=== PATIENT | male | born 1995 | race Two or more races ===

== ENCOUNTER 2024-01-14 18:53 | Emergency (ER) | payer MEDICAID, OTHER ==
[~2024-01-14] VITALS: Ht 182.9 cm; Wt 127.9 kg
[2024-01-14 19:27] VITALS: BP 122/75; PULSE 94; RESP 16; TEMP 99.2
[2024-01-14] MEDS ORDERED: IBUP-1456 PO (21:02)
[2024-01-14 21:06] VITALS: O2SAT 96
== END 2024-01-14 21:27 | disposition home or self-care (01) ==
LOC: ER 18:53
DX: S83.8X1A Sprain of other specified parts of right knee, initial encounter (principal); Z79.899 Other long term (current) drug therapy; X58.XXXA Exposure to other specified factors, initial encounter; Y93.89 Activity, other specified; Y92.89 Other specified places as the place of occurrence of the external cause; Y99.8 Other external cause status
CPT/HCPCS: 73562